=== PATIENT | male | born 1950 | race Native Hawaiian/Other Pacific Islander ===

== ENCOUNTER 2018-08-23 13:10 | Outpatient (CLI) | payer BC, OTHER ==
[2018-08-23 14:55] LABS: PLATELET COUNT 282 K/uL (142-355)
== END 2018-08-23 21:06 | disposition home or self-care (01) ==
LOC: LABW 13:10
PROVIDERS: Internal Medicine Sleep Medicine
DX: I27.1 Kyphoscoliotic heart disease (principal)
CPT/HCPCS: 36415; 36600; 80048; 82805; 85027; 85651